=== PATIENT | female | born 1970 | race Caucasian/White ===

== ENCOUNTER 2017-05-10 10:42 | Emergency (ER) | payer OTHER ==
[2017-05-10 10:50] VITALS: BP 144/87; PULSE 77; TEMP 98.5; BMI 21.8
--- NOTE | 2017-05-10 11:08 | PDOC ---
History of Present Illness - General Chief Complaint: Pain Stated Complaint: RIGHT BREAST LUMP Time Seen by Provider: 05/10/17 11:07 History Source: Patient, Spouse Exam Limitations: No Limitations - History of Present Illness Initial Comments: 46 yo F presents with R breast mass for the past 10 days. Mass is painful. She denies any discharge from the nipple. No redness, fever, skin rash. No prior similar symptoms. Past History - Past Medical History Allergies/Adverse Reactions: Allergies Allergy/AdvReac Type Severity Reaction Status Date / Time No Known Allergies Allergy Verified 05/10/17 10:45 Home Medications: Ambulatory Orders NK [No Known Home Medication] 05/10/17 COPD: No - Suicide/Smoking/Psychosocial Hx Smoking History: Never smoked Hx Alcohol Use: No Drug/Substance Use Hx: No Substance Use Type: None Review of Systems - Review of Systems Able to Perform ROS?: Yes Comments:: GENERAL/CONSTITUTIONAL: No fever or chills. No weakness. HEAD, EYES, EARS, NOSE AND THROAT: No change in vision. No ear pain or discharge. No sore throat. CARDIOVASCULAR: No chest pain or shortness of breath. RESPIRATORY: No cough, wheezing, or hemoptysis. GASTROINTESTINAL: No nausea, vomiting, diarrhea or constipation. GENITOURINARY: No dysuria, frequency, or change in urination. MUSCULOSKELETAL: No joint or muscle swelling or pain. No neck or back pain. SKIN: No rash *Physical Exam - Vital Signs Last Vital Signs Temp Pulse Resp BP Pulse Ox 98.5 F 77 15 144/87 100 05/10/17 10:43 05/10/17 10:43 05/10/17 10:43 05/10/17 10:43 05/10/17 10:43 - Physical Exam Comments: GENERAL: Awake, alert, and fully oriented, in no acute distress HEAD: No signs of trauma EYES: PERRLA, EOMI, sclera anicteric, conjunctiva clear ENT: Auricles normal inspection, hearing grossly normal, nares patent, oropharynx clear without exudates. Moist mucosa NECK: Normal ROM, supple, no lymphadenopathy, JVD, or masses BREAST: R breast with firm nodular area to RUQ. No discharge from the nipple. SKIN: Warm, Dry, normal turgor, no rashes or lesions noted. Medical Decision Making - Medical Decision Making 05/10/17 11:50 Sono findings d/w patient. Stable for DC home. Outpatient f/u with breast specialist. *DC/Admit/Observation/Transfer Diagnosis at time of Disposition: Cyst, breast Qualifiers: Laterality: right Qualified Code(s): N60.01 - Solitary cyst of right breast - Discharge Dispostion Disposition: HOME Condition at time of disposition: Stable Admit: No - Referrals Referrals: Yisel Bella MD [Staff Physician] - Salvatore Carvajal MD [Staff Physician] - - Patient Instructions Printed Discharge Instructions: DI for Breast Cyst - Post Discharge Activity
== END 2017-05-10 11:30 | disposition home or self-care (01) ==
LOC: FER 10:42
DX: N60.01 Solitary cyst of right breast (principal)
CPT/HCPCS: 76642-TC-RT; 99281-25